=== PATIENT | male | born 1985 | race African-American/Black ===

== ENCOUNTER 2019-06-18 00:18 | Emergency (ER) | payer SELFPAY ==
[2019-06-18] MEDS ORDERED: Acetaminophen 500 MG TAB ONE (00:57)
[2019-06-18] MEDS ORDERED: Lidocaine 1% w/Epinephrine 1:100K 20 ML VIAL ONE (01:28)
[2019-06-18] MEDS ORDERED: Proparacaine 0.5% Opth 15 ML BOT ONE (02:18)
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
== END 2019-06-18 02:46 | disposition home or self-care (01) ==
LOC: ERS 00:18
DX: S02.32XA Fracture of orbital floor, left side, initial encounter for closed fracture (principal); F17.210 Nicotine dependence, cigarettes, uncomplicated; Y04.0XXA Assault by unarmed brawl or fight, initial encounter
CPT/HCPCS: 12011; 70450; 70486; J2001